=== PATIENT | male | born 1990 | race Caucasian/White ===

== ENCOUNTER 2016-04-20 09:34 | Emergency (ER) | payer SELFPAY ==
--- NOTE | 2016-04-20 10:32 | ED ORDER SUMMARY ---
..... Patient: ROBIN STEWARD OrderSheet [facility] VisitID: [id number] [address] [place] [address] 25y, M Registration Date/Time: 04/20/2016 ORDER SHEET Weight: 72.5 kg (stated) Allergies: No Known Drug Allergy GENERAL ORDERS: MEDICATION ORDERS: Prednisone PO 40 mg (NOW) (10:10 04/20/2016 Jack Marsh) (10:13 LWhalen R.N.) IV FLUIDS: ORDER SHEET NOTES: This document has not been locked and should not be saved in the medical record.
--- NOTE | 2016-04-20 10:32 | ED ORDER SUMMARY ---
..... Patient: ROBIN STEWARD OrderSheet [facility] VisitID: [id number] [address] [place] [address] 25y, M Registration Date/Time: 04/20/2016 ORDER SHEET Weight: 72.5 kg (stated) Allergies: No Known Drug Allergy GENERAL ORDERS: MEDICATION ORDERS: Prednisone PO 40 mg (NOW) (10:10 04/20/2016 Jack Marsh) (10:13 LWhalen R.N.) IV FLUIDS: ORDER SHEET NOTES: This document has not been locked and should not be saved in the medical record.
--- NOTE | 2016-04-20 10:32 | ED CLINICAL REPORT ---
Clinical Report - Physicians/Mid Levels [facility] [address] [place] [address] 04/20/2016 9:36 Patient: ROBIN STEWARD *This is a preliminary document and is subject to change Time Seen: 09:46; initial patient contact. Arrived- By private vehicle. Historian- patient. HISTORY OF PRESENT ILLNESS Chief Complaint: SKIN RASH. This started about 5 days ago and is still present. It is described as itchy. Not painful. It has been located on the right and left abdomen and right and left buttocks (Distribution c/w shorts). A cause has been identified. No recent medication, insect bite or food exposure. Was not recently exposed to poison an. Similar symptoms previously: None. Recent medical care: Not recently seen/assessed. REVIEW OF SYSTEMS No fever, chills, sore throat or difficulty breathing. All systems otherwise negative, except as recorded above. PAST HISTORY Negative. Problems: no known problems. Surgeries: Tonsillectomy. Medications: None. Allergies: No Known Drug Allergy. SOCIAL HISTORY Never smoker. Occasional alcohol use. No drug use. ADDITIONAL NOTES The nursing notes have been reviewed with agreement regarding the chief complaint, PMH and patient medications and allergies. PHYSICAL EXAM Vital Signs: 04/20/2016 09:50 BP: 130/71. HR: 87. RR: 18. O2 saturation: 98%. Temp: 97.7 F. Have been reviewed as normal. Appearance: Alert. Oriented X3. No acute distress. ENT: Pharynx normal. CVS: Normal heart rate and rhythm. Heart sounds normal. Respiratory: No respiratory distress. Breath sounds normal. Skin: Rash present on the right and left abdomen and right and left buttocks. The rash is erythematous and maculopapular. There is warmth. No tenderness. Neuro: Oriented X 3. CLINICAL IMPRESSION Moderate irritative contact dermatitis from chemical. INSTRUCTIONS Prescription Medications: Medrol Dosepak: take according to package directions. Dispense one (1) dosepak. No refill. Substitution is permissible. (Start on 04/21/16) Yong [address]
--- NOTE | 2016-04-20 10:32 | ED NURSING NOTES ---
Clinical Report - Nurses [facility] [address] [place] [address] 04/20/2016 9:36 [id number] Triage time 09:51 Apr 20 2016. Acuity: LEVEL 3. Chief Complaint: SKIN RASH. ( Irritated from itching and scratching.). TAURUS COMA SCORE: [place] Coma Scale: 15- eyes open spontaneously (4); best verbal response- oriented x 4 (5); best motor response- obeys commands (6). --09:54 Marquis Kay R.N. 09:50 04/20/16. BP: 130/71. HR: 87. RR: 18. O2 saturation: 98%. Temp: 97.7 F. Pain level now 0/10. --09:54 Marquis Kay R.N. Weight: 72.5 kg stated. Height/Length: 69 inches Per Patient. BMI: 23.6. --09:51 Marquis Kay R.N. Medications None. --09:53 Marquis Kay R.N. Allergies No Known Drug Allergy. --09:53 Marquis Kay R.N. History Arrived by private vehicle. Historian: patient. Accompanied by family. Reported as generalized in location. Onset. (Started Saturday). It is described as itchy, burning and painful. ( Unsure of exposure dropped some mirror silverer 1-2 oz on saturday and was playing in the snow on Saturday but no other exposures.). He has had itching. No fever, muscle aches, headache, cough or difficulty breathing. No weakness. 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 PAST MEDICAL HX: Immunizations: up-to-date. SOCIAL HX: Never smoker. Occasional alcohol use. No drug use. No infectious disease exposure. SELF HARM ASSESSMENT: A self harm assessment was performed. The patient answered "no" to the question "Have you recently felt down, depressed, or hopeless?" and "Do you have thoughts of harming or killing yourself?". FALL RISK ASSESSMENT: Fall risk assessment completed. No fall risk identified. NUTRITIONAL RISK ASSESSMENT: The nutritional risk assessment revealed no deficiencies. FUNCTIONAL ASSESSMENT: Functional assessment: no impairments noted. LEARNING NEEDS ASSESSMENT: The learning needs assessment revealed no barriers. ABUSE ASSESSMENT: Abuse assessment: (yes) The patient was asked "Do you feel safe in your home?". SKIN INTEGRITY ASSESSMENT: Skin integrity risk assessment completed. No skin integrity risk identified. --09:54 Marquis Kay R.N. PROBLEMS: no known problems. ADDITIONAL SURGERIES: Tonsillectomy. --09:53 Marquis Kay R.N. Interventions ID band on patient. --09:54 Marquis Kay R.N. PHYSICAL ASSESSMENT Ambulatory to room. GENERAL / NEURO / PSYCH: Alert. The patient does not appear to be in acute distress. Oriented X 4. HEENT: Pupils equal, round and reactive to light. Mucous membranes are pink. RESPIRATORY: Respirations not labored. Breath sounds within normal limits. CVS: Capillary refill less than 2 seconds. Pulses within normal limits. GI / : Abdomen nontender. SKIN: Skin is warm. Generalized tender, urticarial skin rash present. Urticaria present. Normal skin turgor. Skin tenderness present. Increased warmth present. Erythema present. No skin lesion, pallor, swelling or diaphoresis noted. Skin turgor is not poor. --09:55 Marquis Kay R.N. NURSING PROGRESS NOTES The plan of care for this patient has been created. Pulse oximeter and NIBP monitor placed on patient. Patient gowned. Head of bed elevated (45). Reassurance given. Call light placed in reach. Side rails up x 1. Bed placed in lowest position. Brakes of bed on. --09:56 Marquis Kay R.N. 10:13 04/20/2016 Prednisone PO Capsules 40 mg given. Allergies verified and confirmed 5 rights. --10:13 Marquis Kay R.N. Patient gowned. --07:44 Marquis Kay R.N. DISPOSITION / DISCHARGE Departure time: 10:39 Apr 20 2016. Condition at departure: improved. No learning barriers present. Discharge instructions provided and reviewed with the patient. Reviewed warnings. Reviewed medication(s). Treatments reviewed. Reviewed referrals. Patient verbalized understanding. Written instructions provided in Greek. The patient was discharged home and accompanied by family. He left the Emergency Department ambulatory and via private vehicle. Family member driving. --10:39 Marquis Kay R.N. 10:39 04/20/16. BP: 119/67. HR: 80. RR: 18. O2 saturation: 98%. Temp: 97.8 F. Pain level now 0/10. --10:39 Marquis Kay R.N. Locked/Released at 05/15/2016 7:44 by Marquis Kay R.N.
--- NOTE | 2016-04-20 10:32 | ED CLINICAL REPORT ---
Clinical Report - Physicians/Mid Levels [facility] [address] [place] [place] [address] 04/20/2016 9:36 Patient: ROBIN STEWARD *This is a preliminary document and is subject to change Time Seen: 09:46; initial patient contact. Arrived- By private vehicle. Historian- patient. HISTORY OF PRESENT ILLNESS Chief Complaint: SKIN RASH. This started about 5 days ago and is still present. It is described as itchy. Not painful. It has been located on the right and left abdomen and right and left buttocks (Distribution c/w shorts). A cause has been identified. No recent medication, insect bite or food exposure. Was not recently exposed to poison an. Similar symptoms previously: None. Recent medical care: Not recently seen/assessed. REVIEW OF SYSTEMS No fever, chills, sore throat or difficulty breathing. All systems otherwise negative, except as recorded above. PAST HISTORY Negative. Problems: no known problems. Surgeries: Tonsillectomy. Medications: None. Allergies: No Known Drug Allergy. SOCIAL HISTORY Never smoker. Occasional alcohol use. No drug use. ADDITIONAL NOTES The nursing notes have been reviewed with agreement regarding the chief complaint, PMH and patient medications and allergies. PHYSICAL EXAM Vital Signs: 04/20/2016 09:50 BP: 130/71. HR: 87. RR: 18. O2 saturation: 98%. Temp: 97.7 F. Have been reviewed as normal. Appearance: Alert. Oriented X3. No acute distress. ENT: Pharynx normal. CVS: Normal heart rate and rhythm. Heart sounds normal. Respiratory: No respiratory distress. Breath sounds normal. Skin: Rash present on the right and left abdomen and right and left buttocks. The rash is erythematous and maculopapular. There is warmth. No tenderness. Neuro: Oriented X 3. CLINICAL IMPRESSION Moderate irritative contact dermatitis from chemical. INSTRUCTIONS Prescription Medications: Medrol Dosepak: take according to package directions. Dispense one (1) dosepak. No refill. Substitution is permissible. (Start on 04/21/16) Yong [address] Dr.
--- NOTE | 2016-04-20 10:32 | ED NURSING NOTES ---
Clinical Report - Nurses [facility] [address] [place] [address] 04/20/2016 9:36 [id number] Triage time 09:51 Apr 20 2016. Acuity: LEVEL 3. Chief Complaint: SKIN RASH. ( Irritated from itching and scratching.). TAURUS COMA SCORE: [place] Coma Scale: 15- eyes open spontaneously (4); best verbal response- oriented x 4 (5); best motor response- obeys commands (6). --09:54 Marquis Kay R.N. 09:50 04/20/16. BP: 130/71. HR: 87. RR: 18. O2 saturation: 98%. Temp: 97.7 F. Pain level now 0/10. --09:54 Marquis Kay R.N. Weight: 72.5 kg stated. Height/Length: 69 inches Per Patient. BMI: 23.6. --09:51 Marquis Kay R.N. Medications None. --09:53 Marquis Kay R.N. Allergies No Known Drug Allergy. --09:53 Marquis Kay R.N. History Arrived by private vehicle. Historian: patient. Accompanied by family. Reported as generalized in location. Onset. (Started Saturday). It is described as itchy, burning and painful. ( Unsure of exposure dropped some blind cleaner 1-2 oz on saturday and was playing in the snow on Saturday but no other exposures.). He has had itching. No fever, muscle aches, headache, cough or difficulty breathing. No weakness. 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 PAST MEDICAL HX: Immunizations: up-to-date. SOCIAL HX: Never smoker. Occasional alcohol use. No drug use. No infectious disease exposure. SELF HARM ASSESSMENT: A self harm assessment was performed. The patient answered "no" to the question "Have you recently felt down, depressed, or hopeless?" and "Do you have thoughts of harming or killing yourself?". FALL RISK ASSESSMENT: Fall risk assessment completed. No fall risk identified. NUTRITIONAL RISK ASSESSMENT: The nutritional risk assessment revealed no deficiencies. FUNCTIONAL ASSESSMENT: Functional assessment: no impairments noted. LEARNING NEEDS ASSESSMENT: The learning needs assessment revealed no barriers. ABUSE ASSESSMENT: Abuse assessment: (yes) The patient was asked "Do you feel safe in your home?". SKIN INTEGRITY ASSESSMENT: Skin integrity risk assessment completed. No skin integrity risk identified. --09:54 Marquis Kay R.N. PROBLEMS: no known problems. ADDITIONAL SURGERIES: Tonsillectomy. --09:53 Marquis Kay R.N. Interventions ID band on patient. --09:54 Marquis Kay R.N. PHYSICAL ASSESSMENT Ambulatory to room. GENERAL / NEURO / PSYCH: Alert. The patient does not appear to be in acute distress. Oriented X 4. HEENT: Pupils equal, round and reactive to light. Mucous membranes are pink. RESPIRATORY: Respirations not labored. Breath sounds within normal limits. CVS: Capillary refill less than 2 seconds. Pulses within normal limits. GI / : Abdomen nontender. SKIN: Skin is warm. Generalized tender, urticarial skin rash present. Urticaria present. Normal skin turgor. Skin tenderness present. Increased warmth present. Erythema present. No skin lesion, pallor, swelling or diaphoresis noted. Skin turgor is not poor. --09:55 Marquis Kay R.N. NURSING PROGRESS NOTES The plan of care for this patient has been created. Pulse oximeter and NIBP monitor placed on patient. Patient gowned. Head of bed elevated (45). Reassurance given. Call light placed in reach. Side rails up x 1. Bed placed in lowest position. Brakes of bed on. --09:56 Marquis Kay R.N. 10:13 04/20/2016 Prednisone PO Capsules 40 mg given. Allergies verified and confirmed 5 rights. --10:13 Marquis Kay R.N. Patient gowned. --07:44 Marquis Kay R.N. DISPOSITION / DISCHARGE Departure time: 10:39 Apr 20 2016. Condition at departure: improved. No learning barriers present. Discharge instructions provided and reviewed with the patient. Reviewed warnings. Reviewed medication(s). Treatments reviewed. Reviewed referrals. Patient verbalized understanding. Written instructions provided in Ukrainian. The patient was discharged home and accompanied by family. He left the Emergency Department ambulatory and via private vehicle. Family member driving. --10:39 Marquis Kay R.N. 10:39 04/20/16. BP: 119/67. HR: 80. RR: 18. O2 saturation: 98%. Temp: 97.8 F. Pain level now 0/10. --10:39 Marquis Kay R.N. Locked/Released at 05/15/2016 7:44 by Marquis Kay R.N.
--- NOTE | 2016-05-15 07:45 | ED DISCHARGE INSTRUCTIONS ---
Patient: ROBIN STEWARD General Instructions [facility] VisitID: [id number] [address] [place] [address] 25y, M Registration Date/Time: 04/20/2016 Moderate irritative contact dermatitis from chemical. INSTRUCTIONS Prescription Medications: Medrol Dosepak: take according to package directions. Dispense one (1) dosepak. No refill. Substitution is permissible. (Start on 04/21/16) Triamcinolone 0.1% cream: apply to affected areas three times daily as needed for itching, rash or irritation. Dispense thirty (30) grams. No refills. Follow-up: Screening today revealed the patient's blood pressure to be in the pre-hypertensive range. The patient should follow up with a primary care provider for blood pressure management. Follow-up with: [facility], , , [address], , [place], [id number] Follow up in about three days if not better. Call for an appointment. ADDITIONAL INFORMATION Dermatitis (Non-Specific) Dermatitis is an inflammation of the skin. The exact cause of your rash is not certain. However, this rash does not appear to be an infection or contagious illness. Taking care of the rash at home should help relieve your symptoms. Home Care: Keep the areas of rash clean by washing it daily. This also helps to keep the skin moist. Use a neutral pH soap such as Dove or Lever 2000. Apply a moisturizing lotion after bathing to prevent dry skin. Avoid skin irritants (wool or silk clothing, grease, oils, some medicines, harsh soaps, and detergents). Wear absorbent, soft fabrics next to the skin rather than rough or scratchy materials. Unless another medicine was prescribed, you may use Hydrocortisone cream (which you can get without a prescription) to reduce the inflammation. Follow Up: Make an appointment with your doctor in the next 1 to 2 weeks if your symptoms do not improve with the above measures. Get Prompt Medical Attention if any of the following occur: Increasing area of redness or pain in the skin Yellow crusts or drainage from the rash Joint pain New rash that appears in other areas of the body Fever of 100.4F (38C) or higher, or as directed by your healthcare provider Methylprednisolone Oral tablet What is this medicine? METHYLPREDNISOLONE (meth ill pred NISS oh lone) is a corticosteroid. It is commonly used to treat inflammation of the skin, joints, lungs, and other organs. Common conditions treated include asthma, allergies, and arthritis. It is also used for other conditions, such as blood disorders and diseases of the adrenal glands. How should I use this medicine? Take this medicine by mouth with a drink of water. Follow the directions on the prescription label. Take it with food or milk to avoid stomach upset. If you are taking this medicine once a day, take it in the morning. Do not take more medicine than you are told to take. Do not suddenly stop taking your medicine because you may develop a severe reaction. Your doctor will tell you how much medicine to take. If your doctor wants you to stop the medicine, the dose may be slowly lowered over time to avoid any side effects. Talk to your caddie regarding the use of this medicine in children. Special care may be needed. What side effects may I notice from receiving this medicine? Side effects that you should report to your doctor or health inspector health care facilities as soon as possible: allergic reactions like skin rash, itching or hives, swelling of the face, lips, or tongue eye pain, decreased or blurred vision, or bulging eyes fever, sore throat, sneezing, cough, or other signs of infection, wounds that will not heal increased thirst mental depression, mood swings, mistaken feelings of self importance or of being mistreated pain in hips, back, ribs, arms, shoulders, or legs swelling of the ankles, feet, hands trouble passing urine or change in the amount of urine Side effects that usually do not require medical attention (report to your doctor or health inspector health care facilities if they continue or are bothersome): confusion, excitement, restlessness headache nausea, vomiting skin problems, acne, thin and shiny skin weight gain What may interact with this medicine? Do not take this medicine with any of the following medications: mifepristone This medicine may also interact with the following medications: tacrolimus vaccines warfarin What if I miss a dose? If you miss a dose, take it as soon as you can. If it is almost time for your next dose, talk to your doctor or health inspector health care facilities. You may need to miss a dose or take an extra dose. Do not take double or extra doses without advice. Where should I keep my medicine? Keep out of the reach of children. Store at room temperature between 20 and 25 degrees C (68 and 77 degrees F). Throw away any unused medicine after the expiration date. What should I tell my health care provider before I take this medicine? They need to know if you have any of these conditions: Abelardo's syndrome diabetes glaucoma heart problems or disease high blood pressure infection such as herpes, measles, tuberculosis, or chickenpox kidney disease liver disease mental problems myasthenia gravis osteoporosis seizures stomach ulcer or intestine disease including colitis and diverticulitis thyroid problem an unusual or allergic reaction to lactose, methylprednisolone, other medicines, foods, dyes, or preservatives or trying to get breast-feeding What should I watch for while using this medicine? Visit your doctor or health inspector health care facilities for regular checks on your progress. If you are taking this medicine for a long time, carry an identification card with your name and address, the type and dose of your medicine, and your doctor's name and address. The medicine may increase your risk of getting an infection. Stay away from people who are sick. Tell your doctor or health inspector health care facilities if you are around anyone with measles or chickenpox. If you are going to have surgery, tell your doctor or health inspector health care facilities that you have taken this medicine within the last twelve months. Ask your doctor or health inspector health care facilities about your diet. You may need to lower the amount of salt you eat. The medicine can increase your blood sugar. If you are a diabetic check with your doctor if you need help adjusting the dose of your diabetic medicine. Triamcinolone Acetonide, Distilled Water Topical cream What is this medicine? TRIAMCINOLONE (trye am SIN oh lone) is a corticosteroid. It is used on the skin to reduce swelling, redness, itching, and allergic reactions. How should I use this medicine? This medicine is for external use only. Do not take by mouth. Follow the directions on the prescription label. Wash your hands before and after use. Apply a thin film of medicine to the affected area. Do not cover with a bandage or dressing unless your doctor or health inspector health care facilities tells you to. Do not use on healthy skin or over large areas of skin. Do not get this medicine in your eyes. If you do, rinse out with plenty of cool tap water. It is important not to use more medicine than prescribed. Do not use your medicine more often than directed. Talk to your caddie regarding the use of this medicine in children. Special care may be needed. Elderly patients are more likely to have damaged skin through aging, and this may increase side effects. This medicine should only be used for brief periods and infrequently in older patients. What side effects may I notice from receiving this medicine? Side effects that you should report to your doctor or health inspector health care facilities as soon as possible: burning or itching of the skin dark red spots on the skin infection painful, red, pus filled blisters in hair follicles thinning of the skin, sunburn more likely especially on the face Side effects that usually do not require medical attention (report to your doctor or health inspector health care facilities if they continue or are bothersome): dry skin, irritation unusual increased growth of hair on the face or body What may interact with this medicine? Interactions are not expected. What if I miss a dose? If you miss a dose, use it as soon as you can. If it is almost time for your next dose, use only that dose. Do not use double or extra doses. Where should I keep my medicine? Keep out of the reach of children. Store at room temperature between 15 and 30 degrees C (59 and 86 degrees F). Do not freeze. Throw away any unused medicine after the expiration date. What should I tell my health care provider before I take this medicine? They need to know if you have any of these conditions: diabetes infection, like tuberculosis, herpes, or fungal infection large areas of burned or damaged skin skin wasting or thinning an unusual or allergic reaction to triamcinolone, corticosteroids, other medicines, foods, dyes, or preservatives or trying to get breast-feeding What should I watch for while using this medicine? Tell your doctor or health inspector health care facilities if your symptoms do not start to get better within one week. Do not use for more than 14 days. Do not use on healthy skin or over large areas of skin. Tell your doctor or health inspector health care facilities if you are exposed to anyone with measles or chickenpox, or if you develop sores or blisters that do not heal properly. Do not use an airtight bandage to cover the affected area unless your doctor or health inspector health care facilities tells you to. If you are to cover the area, follow the instructions carefully. Covering the area where the medicine is applied can increase the amount that passes through the skin and increases the risk of side effects. If treating the diaper area of a child, avoid covering the treated area with tight-fitting diapers or plastic pants. This may increase the amount of medicine that passes through the skin and increase the risk of serious side effects. You have been given the following additional information: Dermatitis, Non-Specific Methylprednisolone Oral tablet Triamcinolone Acetonide, Distilled Water Topical cream (Electronically signed by Yong Madrid Dr. 04/20/2016 10:35)
--- NOTE | 2016-05-15 07:45 | ED MAR SUMMARY ---
..... Medication Administration Record [facility] [address] [place] [address] Patient: ROBIN STEWARD Visit ID: [id number] 25y, M Weight: 72.5 kg Height/Length: 69 in BMI: 23.6 ALLERGIES: No Known Drug Allergy Given 10:13 04/20/2016 Marquis Kay RSarikaNSarika Medication Administered: PREDNISONE [PO], Dose: 40 mg Capsules PO. Medication Ordered: Prednisone PO 40 mg (NOW).
--- NOTE | 2016-05-15 07:45 | ED MED RECONCILIATION SUMMARY ---
Patient: ROBIN STEWARD Medication Reconciliation Report [facility] VisitID: [id number] [place] [address] 25y, M Registration Date/Time: 04/20/2016 Weight: 72.5 kg Height/Length: 69 in. BMI: 23.6 ALLERGIES: No Known Drug Allergy The patient's Home Medications are listed below: NONE. The source(s) of the original Home Medication information: Not obtained. The following Medications were given to the patient in the Emergency Department: Prednisone [PO] PO 40 mg, administered: 04/20/2016 10:13:00 AM The following Medications were prescribed to the patient: Medrol Dosepak: take according to package directions. Dispense one (1) dosepak. No refill. Substitution is permissible.(Start on 04/21/16) -- Yong Madrid Dr. Triamcinolone 0.1% cream: apply to affected areas three times daily as needed for itching, rash or irritation. Dispense thirty (30) grams. No refills. -- Yong Madrid Dr.
--- NOTE | 2016-05-15 07:45 | ED DISCHARGE INSTRUCTIONS ---
Patient: ROBIN STEWARD General Instructions [facility] VisitID: [id number] [address] [place] [address] 25y, M Registration Date/Time: 04/20/2016 Moderate irritative contact dermatitis from chemical. INSTRUCTIONS Prescription Medications: Medrol Dosepak: take according to package directions. Dispense one (1) dosepak. No refill. Substitution is permissible. (Start on 04/21/16) Triamcinolone 0.1% cream: apply to affected areas three times daily as needed for itching, rash or irritation. Dispense thirty (30) grams. No refills. Follow-up: Screening today revealed the patient's blood pressure to be in the pre-hypertensive range. The patient should follow up with a primary care provider for blood pressure management. Follow-up with: [facility], , , [address], , [place], [id number] Follow up in about three days if not better. Call for an appointment. ADDITIONAL INFORMATION Dermatitis (Non-Specific) Dermatitis is an inflammation of the skin. The exact cause of your rash is not certain. However, this rash does not appear to be an infection or contagious illness. Taking care of the rash at home should help relieve your symptoms. Home Care: Keep the areas of rash clean by washing it daily. This also helps to keep the skin moist. Use a neutral pH soap such as Dove or Lever 2000. Apply a moisturizing lotion after bathing to prevent dry skin. Avoid skin irritants (wool or silk clothing, grease, oils, some medicines, harsh soaps, and detergents). Wear absorbent, soft fabrics next to the skin rather than rough or scratchy materials. Unless another medicine was prescribed, you may use Hydrocortisone cream (which you can get without a prescription) to reduce the inflammation. Follow Up: Make an appointment with your doctor in the next 1 to 2 weeks if your symptoms do not improve with the above measures. Get Prompt Medical Attention if any of the following occur: Increasing area of redness or pain in the skin Yellow crusts or drainage from the rash Joint pain New rash that appears in other areas of the body Fever of 100.4F (38C) or higher, or as directed by your healthcare provider Methylprednisolone Oral tablet What is this medicine? METHYLPREDNISOLONE (meth ill pred NISS oh lone) is a corticosteroid. It is commonly used to treat inflammation of the skin, joints, lungs, and other organs. Common conditions treated include asthma, allergies, and arthritis. It is also used for other conditions, such as blood disorders and diseases of the adrenal glands. How should I use this medicine? Take this medicine by mouth with a drink of water. Follow the directions on the prescription label. Take it with food or milk to avoid stomach upset. If you are taking this medicine once a day, take it in the morning. Do not take more medicine than you are told to take. Do not suddenly stop taking your medicine because you may develop a severe reaction. Your doctor will tell you how much medicine to take. If your doctor wants you to stop the medicine, the dose may be slowly lowered over time to avoid any side effects. Talk to your multi line claims adjuster regarding the use of this medicine in children. Special care may be needed. What side effects may I notice from receiving this medicine? Side effects that you should report to your doctor or health manager progressive care as soon as possible: allergic reactions like skin rash, itching or hives, swelling of the face, lips, or tongue eye pain, decreased or blurred vision, or bulging eyes fever, sore throat, sneezing, cough, or other signs of infection, wounds that will not heal increased thirst mental depression, mood swings, mistaken feelings of self importance or of being mistreated pain in hips, back, ribs, arms, shoulders, or legs swelling of the ankles, feet, hands trouble passing urine or change in the amount of urine Side effects that usually do not require medical attention (report to your doctor or health manager progressive care if they continue or are bothersome): confusion, excitement, restlessness headache nausea, vomiting skin problems, acne, thin and shiny skin weight gain What may interact with this medicine? Do not take this medicine with any of the following medications: mifepristone This medicine may also interact with the following medications: tacrolimus vaccines warfarin What if I miss a dose? If you miss a dose, take it as soon as you can. If it is almost time for your next dose, talk to your doctor or health manager progressive care. You may need to miss a dose or take an extra dose. Do not take double or extra doses without advice. Where should I keep my medicine? Keep out of the reach of children. Store at room temperature between 20 and 25 degrees C (68 and 77 degrees F). Throw away any unused medicine after the expiration date. What should I tell my health care provider before I take this medicine? They need to know if you have any of these conditions: Abelardo's syndrome diabetes glaucoma heart problems or disease high blood pressure infection such as herpes, measles, tuberculosis, or chickenpox kidney disease liver disease mental problems myasthenia gravis osteoporosis seizures stomach ulcer or intestine disease including colitis and diverticulitis thyroid problem an unusual or allergic reaction to lactose, methylprednisolone, other medicines, foods, dyes, or preservatives or trying to get breast-feeding What should I watch for while using this medicine? Visit your doctor or health manager progressive care for regular checks on your progress. If you are taking this medicine for a long time, carry an identification card with your name and address, the type and dose of your medicine, and your doctor's name and address. The medicine may increase your risk of getting an infection. Stay away from people who are sick. Tell your doctor or health manager progressive care if you are around anyone with measles or chickenpox. If you are going to have surgery, tell your doctor or health manager progressive care that you have taken this medicine within the last twelve months. Ask your doctor or health manager progressive care about your diet. You may need to lower the amount of salt you eat. The medicine can increase your blood sugar. If you are a diabetic check with your doctor if you need help adjusting the dose of your diabetic medicine. Triamcinolone Acetonide, Distilled Water Topical cream What is this medicine? TRIAMCINOLONE (trye am SIN oh lone) is a corticosteroid. It is used on the skin to reduce swelling, redness, itching, and allergic reactions. How should I use this medicine? This medicine is for external use only. Do not take by mouth. Follow the directions on the prescription label. Wash your hands before and after use. Apply a thin film of medicine to the affected area. Do not cover with a bandage or dressing unless your doctor or health manager progressive care tells you to. Do not use on healthy skin or over large areas of skin. Do not get this medicine in your eyes. If you do, rinse out with plenty of cool tap water. It is important not to use more medicine than prescribed. Do not use your medicine more often than directed. Talk to your multi line claims adjuster regarding the use of this medicine in children. Special care may be needed. Elderly patients are more likely to have damaged skin through aging, and this may increase side effects. This medicine should only be used for brief periods and infrequently in older patients. What side effects may I notice from receiving this medicine? Side effects that you should report to your doctor or health manager progressive care as soon as possible: burning or itching of the skin dark red spots on the skin infection painful, red, pus filled blisters in hair follicles thinning of the skin, sunburn more likely especially on the face Side effects that usually do not require medical attention (report to your doctor or health manager progressive care if they continue or are bothersome): dry skin, irritation unusual increased growth of hair on the face or body What may interact with this medicine? Interactions are not expected. What if I miss a dose? If you miss a dose, use it as soon as you can. If it is almost time for your next dose, use only that dose. Do not use double or extra doses. Where should I keep my medicine? Keep out of the reach of children. Store at room temperature between 15 and 30 degrees C (59 and 86 degrees F). Do not freeze. Throw away any unused medicine after the expiration date. What should I tell my health care provider before I take this medicine? They need to know if you have any of these conditions: diabetes infection, like tuberculosis, herpes, or fungal infection large areas of burned or damaged skin skin wasting or thinning an unusual or allergic reaction to triamcinolone, corticosteroids, other medicines, foods, dyes, or preservatives or trying to get breast-feeding What should I watch for while using this medicine? Tell your doctor or health manager progressive care if your symptoms do not start to get better within one week. Do not use for more than 14 days. Do not use on healthy skin or over large areas of skin. Tell your doctor or health manager progressive care if you are exposed to anyone with measles or chickenpox, or if you develop sores or blisters that do not heal properly. Do not use an airtight bandage to cover the affected area unless your doctor or health manager progressive care tells you to. If you are to cover the area, follow the instructions carefully. Covering the area where the medicine is applied can increase the amount that passes through the skin and increases the risk of side effects. If treating the diaper area of a child, avoid covering the treated area with tight-fitting diapers or plastic pants. This may increase the amount of medicine that passes through the skin and increase the risk of serious side effects. You have been given the following additional information: Dermatitis, Non-Specific Methylprednisolone Oral tablet Triamcinolone Acetonide, Distilled Water Topical cream (Electronically signed by Yong Madrid Dr. 04/20/2016 10:35)
--- NOTE | 2016-05-15 07:45 | ED MED RECONCILIATION SUMMARY ---
Patient: ROBIN STEWARD Medication Reconciliation Report [facility] VisitID: [id number] [place] [address] 25y, M Registration Date/Time: 04/20/2016 Weight: 72.5 kg Height/Length: 69 in. BMI: 23.6 ALLERGIES: No Known Drug Allergy The patient's Home Medications are listed below: NONE. The source(s) of the original Home Medication information: Not obtained. The following Medications were given to the patient in the Emergency Department: Prednisone [PO] PO 40 mg, administered: 04/20/2016 10:13:00 AM The following Medications were prescribed to the patient: Medrol Dosepak: take according to package directions. Dispense one (1) dosepak. No refill. Substitution is permissible.(Start on 04/21/16) -- Yong Madrid Dr. Triamcinolone 0.1% cream: apply to affected areas three times daily as needed for itching, rash or irritation. Dispense thirty (30) grams. No refills. -- Yong Madrid Dr.
--- NOTE | 2016-05-15 07:45 | ED MAR SUMMARY ---
..... Medication Administration Record [facility] [address] [place] [address] Patient: ROBIN STEWARD Visit ID: [id number] 25y, M Weight: 72.5 kg Height/Length: 69 in BMI: 23.6 ALLERGIES: No Known Drug Allergy Given 10:13 04/20/2016 Marquis Kay RSarikaNSarika Medication Administered: PREDNISONE [PO], Dose: 40 mg Capsules PO. Medication Ordered: Prednisone PO 40 mg (NOW).
== END 2016-04-20 10:40 | disposition home or self-care (01) ==
LOC: ED SRH 09:34
DX: L24.5 Irritant contact dermatitis due to other chemical products (principal); Y92.9 Unspecified place or not applicable